=== PATIENT | female | born 1950 | race Caucasian/White ===

== ENCOUNTER → 2016-12-02 | Outpatient (CLI) | payer OTHER, MEDICARE ==
[~2016-12-02] MED LIST: BENZ2AMP4 PO; CITA20TA9 PO; CLON-365 PO; CLON1TAB PO; DIPH50VI4 IM; DOCU-30 PO; GABA-826 PO; HALO5AMP3 IM; HALO5TAB5 PO; LANS15CA45 PO; LORA-446 PO; LORA2VIA4 IM; METR500T PO; OLAN20TA3 PO; OMEP-110 PO; TRAZ100T15 PO; VALP250S PO; VANC250C12 PO
== END | disposition home or self-care (01) ==
LOC: PETCFH 10:15
PROVIDERS: ATTEND Family Medicine
DX: E04.1 Nontoxic single thyroid nodule (principal)
CPT/HCPCS: 78013; A9516

== ENCOUNTER 2016-12-30 18:21 | Emergency (ER) | payer OTHER, MEDICARE ==
[~2016-12-30] VITALS: Ht 157.5 cm; Wt 66.4 kg
[~2016-12-30 18:21] MED LIST changes: +DIPH50VI IM; -DIPH50VI4 IM; +DOCU-131 PO; -DOCU-30 PO; -LANS15CA45 PO; +LANS15CA60 PO
[2016-12-30] MEDS ORDERED: ASPIRIN 81 MG TABLET CHEW PO ONE (19:00)
[2016-12-30 19:21] LABS: BLOOD UREA NITROGEN 17 mg/dL (7-18)
[2016-12-30 19:41] LABS: IS PT STATUS REG ER OR PRE ER? YES
[2016-12-30] MEDS ORDERED: ASPIRIN 81 MG TABLET CHEW ONE (19:55)
[2016-12-30] MEDS ORDERED: LORazepam 1MG TABLET PO ONE (20:00)
[2016-12-30 20:05] LABS: HEMATOCRIT 45.6 % (34.6-47.8); HEMOGLOBIN 14.9 g/dL (11.7-16.4); WHITE BLOOD COUNT 8.4 x10^3/uL (3.4-10)
[2016-12-30] MEDS ORDERED: LORazepam 1MG TABLET ONE (20:05)
[2016-12-30] MEDS ORDERED: TRAZ100T15 PO (20:11)
[2016-12-30 20:40] VITALS: BP 135/87
== END 2016-12-30 21:18 ==
LOC: ED 19:44
DX: R00.2 Palpitations (principal); F41.9 Anxiety disorder, unspecified; F43.9 Reaction to severe stress, unspecified; F31.9 Bipolar disorder, unspecified; Z90.710 Acquired absence of both cervix and uterus; Z98.51 Tubal ligation status
CPT/HCPCS: 36415; 71010; 80048; 82040; 83735; 84439; 84443; 84484; 85025; 93005; 99285

== ENCOUNTER → 2017-06-13 | Outpatient (CLI) | payer OTHER, MEDICARE ==
[~2017-06-13] MED LIST changes: +OMNIPAQUE 350 MG/ML, 75ML BOTTLE ONE
== END | disposition home or self-care (01) ==
LOC: CFH 12:47
PROVIDERS: ATTEND Internal Medicine Cardiovascular Disease
DX: I77.810 Thoracic aortic ectasia (principal); J98.4 Other disorders of lung
CPT/HCPCS: 71260; Q9967

== ENCOUNTER → 2018-06-08 | Outpatient (CLI) | payer MEDICARE ==
[~2018-06-08] MED LIST changes: -CLON-365 PO; +CLON1TAB11 PO; -DIPH50VI IM; +DIPH50VI10 IM; -LORA2VIA4 IM; +LORA2VIA6 IM; -OMNIPAQUE 350 MG/ML, 75ML BOTTLE ONE; +TRAZ-137 PO; -TRAZ100T15 PO
== END | disposition home or self-care (01) ==
LOC: CFH 12:55
PROVIDERS: ATTEND Internal Medicine Cardiovascular Disease
DX: I77.810 Thoracic aortic ectasia (principal); I10 Essential (primary) hypertension; Z87.891 Personal history of nicotine dependence
CPT/HCPCS: 93306

== ENCOUNTER → 2019-05-20 | Outpatient (CLI) | payer MEDICARE ==
[~2019-05-20] MED LIST changes: +OMNIPAQUE 350 MG/ML, 100ML BOTTLE ONE
== END | disposition home or self-care (01) ==
LOC: CFH 13:58
PROVIDERS: ATTEND Internal Medicine Cardiovascular Disease
DX: I77.810 Thoracic aortic ectasia (principal)
CPT/HCPCS: 71275; 82565; Q9967